=== PATIENT | male | born 1995 | race Caucasian/White ===

== ENCOUNTER 2018-11-07 09:51 | Emergency (ER) | payer OTHER ==
[~2018-11-07] VITALS: Ht 177.8 cm; Wt 74.8 kg
[2018-11-07 10:00] VITALS: BP 119/78
--- NOTE | 2018-11-07 10:08 | NUR ---
PT AMB TO BED 6
--- NOTE | 2018-11-07 10:16 | NUR ---
C/O LAC WOUND RIGHT WRIST S/P GOT CUT BY GLASS OF WINDOW X 2 WEEKS. LAST TDAP 1 MONTH AGO. MED HX:DENIES
[2018-11-07] MEDS ORDERED: cefTRIAXone 1,000 MG in LIDOCAINE MPF 1% - 5 mL VIAL 2.1 ML IM ONE (11:00)
[2018-11-07] MEDS ORDERED: NEOMYCIN/POLYMYXIN/BACITRACIN 0.9 GM/1 PKT TP ONE (11:06)
--- NOTE | 2018-11-07 12:47 | NUR ---
AWAITING DISCHARGE INFO BY ER MD DR SOUSA
--- NOTE | 2018-11-07 12:50 | NUR ---
AWAITING DISCHARGE INFO BY ER MD DR SOUSA
[2018-11-07 13:11] VITALS: BP 135/83
== END 2018-11-07 13:09 | disposition home or self-care (01) ==
LOC: MED 09:51
DX: L03.113 Cellulitis of right upper limb (principal); S61.511A Laceration without foreign body of right wrist, initial encounter; Z87.891 Personal history of nicotine dependence; X58.XXXA Exposure to other specified factors, initial encounter; Y93.21 Activity, ice skating; Y92.331 Roller skating rink as the place of occurrence of the external cause; Y99.8 Other external cause status
CPT/HCPCS: 90471; 90715; 96372; 99283; J0696; J2001